=== PATIENT | female | born 1960 | race Two or more races ===

== ENCOUNTER 2023-03-01 10:32 | Day surgery (SDC) | payer OTHER ==
[2023-02-24 12:15] VITALS: BMI 23.2
[2023-03-01] MEDS ORDERED: ONDANSETRON 4 MG/2 ML VIAL ONE (10:37)
[2023-03-01] MEDS ORDERED: BSS (NA/CA/MG/K) BALANCED SALT SOLUTION OPHTH SOLN 15 ML BOTTLE ONE (10:57)
[2023-03-01] MEDS ORDERED: TETRACAINE 0.5% OPHTH SOLN 2 ML BOTTLE ONE (10:57)
[2023-03-01] MEDS ORDERED: LIDOCAINE 1% P/F 10 MG/ML VIAL ONE (10:57)
[2023-03-01] MEDS ORDERED: CARBACHOL 0.01% INTRA-OCULAR 1.5 ML VIAL ONE (10:58)
[2023-03-01] MEDS ORDERED: NEO/POLYMYX B SULF/DEXAMETH OPHTHALMIC 5ML BOTTLE ONE (10:58)
[2023-03-01] MEDS: CYCLOPENTOLATE 2% OPHTH SOLN 2 ML BOTTLE ONE ×3 (11:10→11:20)
[2023-03-01] MEDS: TROPICAMIDE 1% OPHTH SOLN 15 ML BOTTLE ONE ×3 (11:10→11:20)
[2023-03-01] MEDS: CIPROFLOXACIN 0.3% EYE DROPS 5 ML BOTTLE ONE ×3 (11:10→11:20)
[2023-03-01] MEDS: PHENYLEPHRINE 2.5% OPTHALMIC DROP 2ML BOTTLE ONE ×3 (11:10→11:20)
[2023-03-01 11:15] VITALS: RESP 16
[2023-03-01] MEDS ORDERED: MIDAZOLAM HCL 2 MG/2 ML SINGLE DOSE VIAL ONE (11:35)
[2023-03-01 13:15] VITALS: TEMP 97.8
[2023-03-01 13:16] VITALS: BP 140/76; PULSE 68
== END 2023-03-01 13:20 | disposition home or self-care (01) ==
LOC: FASU 10:32
PROVIDERS: ATTEND Ophthalmology
PROC: 08RJ3JZ Replacement of Right Lens with Synthetic Substitute, Percutaneous Approach (ICD-10-PCS; principal; 2023-03-01 12:14)
DX: H26.8 Other specified cataract (principal)
CPT/HCPCS: 66984; V2632